=== PATIENT | male | born 1980 | race Caucasian/White ===

== ENCOUNTER 2016-11-07 10:04 | Day surgery (SDC) | payer OTHER ==
[~2016-11-07] VITALS: Ht 177.8 cm; Wt 117.9 kg
[~2016-11-07 10:04] MED LIST: METF500T4 PO; OMEP40CA36 PO; OXYC5CAP4 PO; Sodium Chloride LOK Flush 10 mL Syringe IV PRN; fentaNYL-PF 50 mCg/mL 2 mL Inj IVPUSH PRN
[2016-11-07 10:29] VITALS: BP 135/84; PULSE 89; RESP 16; O2SAT 98
[2016-11-07] MEDS: 0.9% Sodium Chloride 1,000 ML IV SCH ×2 (10:47→11:29)
--- NOTE | 2016-11-07 11:15 | ENDO ---
[address] [address] ENDOSCOPY PROCEDURE PATIENT: BILL NICOLE : 1980 MR#: [id number] ADMIT: 11/07/2016 JOB ID: [id number] DATE: 11/07/2016 PROCEDURE: Esophagogastroduodenoscopy. INDICATION: Chronic nausea and diarrhea. The patient's ASA classification is 2. Mallampati score is 2. MEDICATIONS: 1. Versed 5 mg. 2. Fentanyl 100 mcg. INSTRUMENT USED: GIF H 180 J. PROCEDURE DETAILS: After informed consent was obtained, the patient was brought into the GI suite, where he was placed on oxygen via nasal cannula and monitored with continuous pulse oximeter, telemetry and blood pressure monitoring. A time-out was performed. Then, he was placed in a left lateral decubitus position and medications were administered for sedation. A bite block was placed. The standard EGD scope was inserted through the bite block and advanced under direct visualization to second portion of the duodenum without difficulty. FINDINGS: 1. Normal-appearing duodenal bulb, first and second portion. Multiple random biopsies were obtained. 2. Normal appearing pylorus. In the antrum and body, there was mild erythema suggestive of mild gastritis. Multiple random biopsies were obtained. 3. Retroflexed views in the gastric body revealed normal appearing cardia and fundus. 4. The GE junction was at approximately 43 cm and appeared regular. 5. Normal appearing esophagus. IMPRESSION: Mild gastritis, otherwise normal examination to second portion of the duodenum. RECOMMENDATIONS: 1. Await biopsy results. 2. Continue PPI daily. 3. Proceed to colonoscopy. COMPLICATIONS: None. ESTIMATED BLOOD LOSS: Less than 5 mL.
[2016-11-07 11:18] VITALS: BP 121/81; PULSE 92; RESP 16; O2SAT 96
[2016-11-07 11:28] VITALS: BP 102/78; PULSE 90; RESP 16; O2SAT 95
[2016-11-07 11:31] VITALS: BP 146/80; PULSE 96; RESP 16; O2SAT 97
--- NOTE | 2016-11-07 11:43 | ENDO ---
[address] [address] ENDOSCOPY PROCEDURE PATIENT: BILL NICOLE : 1980 MR#: [id number] ADMIT: 11/07/2016 JOB ID: [id number] PROCEDURE: Colonoscopy. INDICATION: Diarrhea. ANESTHESIA: Patient's ASA classification and Mallampati score are 2 and 2. INSTRUMENT USED: Was a PCF H 190 L. PREPARATION QUALITY: Poor. PROCEDURE DETAILS: After completion of the EGD exam, a digital rectal exam was performed which was unremarkable. The colonoscope was then inserted into the rectum and advanced under direct visualization to the terminal ileum, which was identified by the presence of the ileocecal valve and the villous-appearing mucosa of the terminal ileum. Once the terminal ileum was reached, the colonoscope was withdrawn back into the rectum as the mucosa and lumen were examined. In the rectum, retroflexion was performed. Following retroflexion, the remaining air in the rectum was suctioned and the procedure was completed. FINDINGS: 1. Normal appearing terminal ileum. 2. Visualized mucosa from cecum to rectum appeared normal. 3. In the ascending colon there was a diminutive polyp that was removed with cold biopsy forceps. 4. Multiple random biopsies were obtained throughout the colon. 5. Retroflexed views in the rectum were poor secondary to poor prep. IMPRESSION: 1. Poor prep; however, examined portions of the colon mucosa appeared normal. 2. Normal-appearing terminal ileum. RECOMMENDATIONS: Await biopsy results and follow up in GI clinic in two to four weeks. COMPLICATIONS: None. ESTIMATED BLOOD LOSS: Less than 5 mL.
--- NOTE | 2016-11-13 14:37 | PATH ---
SURGICAL PATHOLOGY Attending Physician:Nancy Silva CASE STATUS: Signed Out PATIENT NAME: BILL NICOLE PID: [id number] : 1980 DATE COLLECTED:11/07/2016 21:00 SPECIMEN: 1: Duodenum, Biopsy 2: Gastric, Biopsy 3: Colon, Biopsy 4: Colon, Biopsy CLINICAL HISTORY: 1). RANDOM DUODENAL 2). GASTRIC BIOPSIES 3). RANDOM COLON BIOPSIES 4). ASCENDING COLON POLYP X1 FINAL DIAGNOSIS: 1.RANDOM DUODENUM, BIOPSIES: DUODENAL MUCOSA WITH NO DIAGNOSTIC ABNORMALITY. Negative for active inflammation, features of sprue, dysplasia, and malignancy. 2.STOMACH, BIOPSIES: ANTRAL AND BODY-TYPE MUCOSA WITH NO DIAGNOSTIC ABNORMALITY. Negative for Helicobacter pylori organisms. Negative for intestinal metaplasia. Negative for dysplasia and malignancy. 3.RANDOM COLON, BIOPSIES: COLONIC MUCOSA WITH NO DIAGNOSTIC ABNORMALITY. Negative for active, chronic and microscopic colitis. Negative for dysplasia and malignancy. 4.ASCENDING COLON, POLYP, BIOPSY: TUBULAR ADENOMA. ICD10 CODE D12.2 GROSS DESCRIPTION: The specimen is received in four formalin filled containers labeled with the patient's name. 1). The specimen is sublabeled "random duodenal" and consists of 5 portions of tissue which aggregate to 0.5 x 0.5 x 0.3 CM. The specimen is entirely submitted in cassette 1A. 2). The specimen is sublabeled "gastric" and consists of 2 portions of tissue which aggregate to 0.6 0.4 x 0.3 CM. The specimen is entirely submitted in cassette 2A. 3). The specimen is sublabeled "random colon" and consists of 4 portions of tissue which aggregate to 0.4 x 0.4 x 0.3 CM. The specimen is entirely submitted in cassette 3A. 4). The specimen is sublabeled "ascending colon polyp" and consists of 2 portions of tissue which aggregate to 0.3 x 0.3 x 0.3 CM. The specimen is entirely submitted in cassette 4A. 11/07/2016 [facility] MICRO DESCRIPTION: See diagnosis. ICD-9 CODES: CPT CODES: 1: 38510 2: 07939 3: 99392 4: 69354 Electronically Signed Out Norma Maya MD [facility] Pathology [facility] [address] [place] [id number] Technical component performed at [facility], [address], [address]
== END 2016-11-07 23:59 | disposition home or self-care (01) ==
LOC: END 10:04
PROVIDERS: ATTEND Internal Medicine Gastroenterology
DX: D12.2 Benign neoplasm of ascending colon (principal); R19.7 Diarrhea, unspecified; K29.50 Unspecified chronic gastritis without bleeding; R11.0 Nausea
CPT/HCPCS: 43239; 45380; J2250; J7030